=== PATIENT | male | born 1940 | race Caucasian/White ===

== ENCOUNTER 2025-01-22 08:26 | Emergency (ER) | payer OTHER, SELFPAY ==
[2025-01-22 08:31] VITALS: BP 138/68
--- NOTE | 2025-01-22 09:12 | ED.GENMED ---
History of Present Illness
General
Chief Complaint: Cough
Source: patient
Exam Limitations: none
Time Seen by Provider: 01/22/25 09:12
Nursing documentation reviewed up to this point in time: agreed with
History of Present Illness
History of Present Illness:
84-year-old male presents to the ER for evaluation. Patient is a cough of the past 2 weeks however reports it is not getting better. He does feel extremely tired and mildly short of breath with cough when he walks. He complains of abdominal
discomfort with coughing. No other sick contacts at home. Has been taking [id number] cough and cold medicines which have not been helping. He did have the chills 1 week ago but has not had the chills since.
Review of Systems
Review of Systems
Allergies reviewed?: Yes
All Other Systems: ROS reviewed and negative except as documented in HPI and ROS
Constitutional: Reports chills (pt had chills last week )
ABD/GI: Reports no symptoms
Musculoskeletal: Reports no symptoms
Skin: Reports no symptoms
Psychiatric: Reports no symptoms
Phy Exam
General Physical Exam
General Presentation: no apparent distress
General age: appears stated age
General Skin: warm and dry
General Habitus: normal
General Mental: alert
General Hydration: appears well hydrated
Cardiovascular Exam
Cardiovascular Exam: regular rate/rhythm, no murmur and normal peripheral pulses
Pulmonary Exam
Pulmonary Exam: lungs clear and no respiratory distress
Neurological Exam
Neurological Exam: alert and oriented x3
Musculoskeletal Exam
Musculoskeletal Exam: full ROM
Skin Exam
Skin Exam: normal color and warm/dry
Psychiatric Exam
Psychiatric Exam: normal mood/affect
Course
Orders/Labs/Results
Orders:
Orders
01/22/25 09:28
IV Insert/Care/Rem.- Treatment PRN
01/22/25 09:29
Electrocardiogram (*1) Stat
Reason for Study: Other
Other Reason for Exam: chest pain
Cardiac Monitoring- Treatment ONCE
EKG- Treatment ONCE
CR Chest - 2 Views Urgent
Comment:
Reason For Exam: cough
01/22/25 10:12
COVID-19 Antigen Urgent
Source: Nasal Swab
01/22/25 10:13
Complete Blood Count/With Diff Urgent
Comprehensive Metabolic Panel Urgent
Influenza A+B Rapid Molecular Urgent
JULIAN Source: Nasal Swab
Specimen Description:
01/22/25 10:51
Benzonatate [Tessalon Perles] 200 mg PO NOW STA
Abnormal Lab Results
01/22/25
10:13
RBC 4.45 L 10^6/uL
(4.70-6.10)
Hgb 11.8 L g/dL
(13.0-18.0)
Hct 36.0 L %
(39.0-52.0)
MCH 26.5 L pg
(27.0-31.0)
MCHC 32.8 L g/dL
(33.0-37.0)
RDW 15.9 H %
(11.5-14.5)
MPV 10.8 H fL
(7.4-10.4)
Absolute Lymphs (auto) 1.1 L 10^3/uL
(1.2-3.4)
Absolute Monos (auto) 0.8 H 10^3/uL
(0.1-0.6)
Monocytes % 16.7 H %
(1.7-9.3)
Glucose 123 H mg/dl
(70-99)
01/22/25 10:13
01/22/25 10:13
Vital Signs
Initial and Last Documented VS:
Initial Vital Signs
Temp Pulse Resp BP Pulse Ox
98.8 F 77 18 138/68 98
01/22/25 08:31 01/22/25 08:31 01/22/25 08:31 01/22/25 08:31 01/22/25 08:31
Last Documented Vital Signs
Temp Pulse Resp BP Pulse Ox
98.8 F 69 24 138/62 95
01/22/25 08:31 01/22/25 10:45 01/22/25 10:45 01/22/25 10:05 01/22/25 10:45
MDM/Problems Addressed
Differential Diagnosis Includes:
Not limited to URI, cough, pneumonia, bronchitis, influenza or COVID
MDM/Problems Addressed:
As documented patient is an 84-year-old male who presents to the ER complaining cough of about the past 2 weeks. Cough is not improving. He denies any actual shortness of breath. He does feel sore with cough. He presents awake alert no acute
distress afebrile not hypoxic nontachycardic nontachypneic with a normal white count and afebrile. Lungs are clear on exam. Patient was found to be influenza positive however has had symptoms for 2 weeks he is not hypoxic we will hold off on
Tamiflu will DC with [facility] and supportive care. d/ c with family.
*Radiology
Radiology exam reviewed: radiology read reviewed
*Pulse Oximetry
Patient hypoxic: no
*Critical Care Note
Total Time (30-74mins, 75-104mins- exclusive of procedures): Not Applicable
ED Attending Note
-
Portions of this chart may have been created with voice recognition software.� Occasional wrong word or��sound alike� substitutions may have occurred due to the inherent limitations of voice recognition software.
Discharge Plan
Departure
Patient Disposition: Home (Routine Discharge)
Date of Disposition: 01/22/25
Time of Disposition: 10:52
Patient with high blood pressure during this ER visit?: Yes
Condition: Fair
Covid-19: Not Applicable
Discharge Problem:
Influenza A
Instructions: Flu in adults - Discharge instructions
Prescriptions:
New
benzonatate 200 mg capsule
200 mg PO TID PRN (Reason: Cough) Qty: 10 0RF
Referrals:
Gerardo Lockhart, DO [Family Provider] -
Stand Alone Forms: Return to Work
Activity Restrictions/Additional Instructions:
Rest increase fluids. A prescription for cough medicine was sent to your pharmacy take as directed.
Follow-up with your family doctor in the next of days and return if any worsening of symptoms
Interventions
Interventions:
*Risk Screen - Suicide Last Done: 01/22/25 08:31
*General Assessment Last Done: 01/22/25 10:44
*Neglect/Abuse Screening Last Done: 01/22/25 08:31
*ED- Fall Risk Assessment Last Done: 01/22/25 10:44
*ED COVID-19 Vaccine History Last Done: 01/22/25 10:44
*Nursing Disposition Last Done: 01/22/25 11:12
QP-Vxrvks-Iedvhclvjl Assessment Last Done: 01/22/25 10:17
ED- Pulmonary Assessment Last Done: 01/22/25 10:17
Discharge Date and Time
Discharge Date/Time: 01/22/25 11:15
Print Language: AMERICAN
--- NOTE | 2025-01-22 09:15 | EDRN ---
Caryl Urbina NP in room w/pt.
[2025-01-22 10:05] VITALS: BP 138/62
[2025-01-22 10:21] LABS: % Basophils 0.2 % (0-2); % Eosinophils 2.9 % (0-6); % Lymphocytes 23.5 % (20.5-51.1); % Monocytes 16.7 % (1.7-9.3); % Neutrophils 56.7 % (42.2-75.2); Absolute Eosinophils 0.1 10^3/uL (0-0.7); Absolute Lymphocytes 1.1 10^3/uL (1.2-3.4); Absolute Monocytes 0.8 10^3/uL (0.1-0.6); Absolute Neutrophils 2.8 10^3/uL (1.4-6.5); Hemoglobin 11.8 g/dL (13.0-18.0); Mean Corp Hgb Conc. 32.8 g/dL (33.0-37.0); Mean Corpuscular Hgb 26.5 pg (27.0-31.0); Mean Corpuscular Volume 80.9 fL (80.0-94.0); Mean Platelet Volume 10.8 fL (7.4-10.4); Nucleated Red Blood Cells % 0 % (-); Platelet Count 176 10^3/uL (130-400); Red Blood Cell Count 4.45 10^6/uL (4.70-6.10); Red Cell Dist. Width 15.9 % (11.5-14.5); White Blood Cell Count 4.9 10^3/uL (4.8-10.8)
[2025-01-22 10:35] LABS: COVID-19 Antigen Negative (Negative)
[2025-01-22 10:35] LABS: ALT (SGPT) 24 U/L (0-50); AST (SGOT) 27 U/L (17-59); Albumin 3.7 g/dl (3.5-5.0); Alkaline Phosphatase 81 U/L (38-126); Blood Urea Nitrogen 18 mg/dl (9-20); Calcium 8.6 mg/dl (8.4-10.2); Carbon Dioxide 26 mmol/L (22-30); Chloride 104 mmol/L (98-107); Glucose 123 mg/dl (70-99); Potassium 4.2 mmol/L (3.5-5.1); Sodium 137 mmol/L (135-145); Total Bilirubin 0.4 mg/dl (0.2-1.3); Total Protein 6.8 g/dl (6.3-8.2); eGFR 54.85
[2025-01-22 10:46] VITALS: BMI 26.2
--- NOTE | 2025-01-22 10:54 | EDRN ---
Caryl Urbina NP in room w/ pt.
[2025-01-22] MEDS: TESSALON PERLES 200 MG PO (11:04)
== END 2025-01-22 11:15 | disposition home or self-care (01) ==
LOC: EMR 08:26
PROVIDERS: Nurse Practitioner; EMERGENCY PHYSICIAN Emergency Medicine; FAMILY PHYSICIAN Family Medicine
DX: J10.1 Influenza due to other identified influenza virus with other respiratory manifestations (principal)
CPT/HCPCS: 99283; 71046; 80053; 85025; 87502; 87811; 93005